=== PATIENT | male | born 1950 | race Caucasian/White ===

== ENCOUNTER 2024-01-19 19:11 | Emergency (ER) | payer MEDICARE, OTHER ==
[~2024-01-19] VITALS: Ht 157.5 cm; Wt 54.4 kg
[~2024-01-19 19:11] MED LIST: INSU100V7 IJ; LISI10TA29 PO; NPH,100V SQ
[2024-01-19 19:14] VITALS: BP_SYST 189; PULSE 100; RESP 28; TEMP 98.3; O2SAT 95
[2024-01-19] MEDS: NITROGLYCERIN 0.4 MG TAB.SUBL SL ONE (19:39)
[2024-01-19 19:46] LABS: BASOPHILS # (AUTO) 0.1 K/uL (0.0-0.2); BASOPHILS % (AUTO) 0.6 % (0.0-2.0); EOSINOPHILS # (AUTO) 0.5 K/uL (0.0-0.4); EOSINOPHILS % (AUTO) 5.4 % (0.0-4.0); HEMATOCRIT 22.8 % (36-54); HEMOGLOBIN 7.9 g/dL (14.0-18.0); LYMPHOCYTES # (AUTO) 1.1 K/uL (1.0-5.5); LYMPHOCYTES % (AUTO) 11.2 % (20.5-51.5); MEAN CORPUSCULAR HEMOGLOBIN 32 pg (27-31); MEAN CORPUSCULAR HGB CONC 35 % (32-36); MEAN CORPUSCULAR VOLUME 93 fL (79.0-98.0); MONOCYTES # (AUTO) 0.6 K/uL (0.0-1.0); MONOCYTES % (AUTO) 6.3 % (1.7-9.3); NEUTROPHILS # (AUTO) 7.2 K/uL (1.8-7.7); NEUTROPHILS % (AUTO) 76.5 % (40.0-70.0); PLATELET COUNT (AUTO) 170 K/uL (130-430); RED BLOOD CELL COUNT(AUTO) 2.46 MIL/uL (4.2-6.2); RED CELL DISTRIBUTION WIDTH 13.7 % (9.0-15.0); WHITE BLOOD COUNT (AUTO) 9.4 K/uL (4.8-10.8)
[2024-01-19] MEDS ORDERED: HEPARIN SODIUM,PORCINE 5,000 UNITS/ML VIAL ONE (19:58)
[2024-01-19] MEDS: HEPARIN IV FLUSH 300 UNITS/3ML SYR INJ ONE (20:00)
[2024-01-19 20:03] VITALS: BP_SYST 181; PULSE 102; RESP 24; TEMP 98.2; O2SAT 95
[2024-01-19 20:08] LABS: PROTHROMBIN TIME 10.6 SECS (9.5-12.5)
[2024-01-19 20:34] LABS: ALANINE AMINOTRANSFERASE 12 U/L (12-78); ALBUMIN 3.2 g/dL (3.4-4.8); ANION GAP 19 (5-15); ASPARTATE AMINOTRANSFERASE 8 U/L (10-37); CALCIUM 8.3 mg/dL (8.4-11.0); CARBON DIOXIDE 19 mmol/L (23-29); CHLORIDE 100 mmol/L (98-107); CREATININE 6.46 mg/dL (0.55-1.30); SODIUM SERUM 138 mmol/L (136-145); TOTAL BILIRUBIN 0.4 mg/dL (0.0-1.0); TOTAL PROTEIN, SERUM 6.7 g/dL (6.4-8.3); UREA NITROGEN, BLOOD 73 mg/dL (8-21)
[2024-01-19 20:35] LABS: GLUCOSE 499 mg/dL (74-106)
== END 2024-01-19 20:03 | disposition short-term general hospital (02) ==
LOC: SED 19:11
DX: R07.9 Chest pain, unspecified (principal); R94.31 Abnormal electrocardiogram [ECG] [EKG]; R06.02 Shortness of breath; R09.02 Hypoxemia; I12.0 Hypertensive chronic kidney disease with stage 5 chronic kidney disease or end stage renal disease; E11.22 Type 2 diabetes mellitus with diabetic chronic kidney disease; N18.6 End stage renal disease; Z79.4 Long term (current) use of insulin; Z88.6 Allergy status to analgesic agent
CPT/HCPCS: 99291; 96374; 80053; 83880; 85025; 85610; 85730; 84484; 36415; 93005; 71045; J1644

== ENCOUNTER 2024-03-15 11:17 | Emergency (ER) | payer MEDICARE ==
[~2024-03-15] VITALS: Ht 157.5 cm; Wt 54.4 kg
[2024-03-15 11:17] VITALS: BP_SYST 116; PULSE 89; RESP 24; TEMP 97; O2SAT 94
[2024-03-15] MEDS: NITROGLYCERIN 0.4 MG TAB.SUBL SL ONE (11:30)
[2024-03-15 11:53] LABS: BASOPHILS # (AUTO) 0.1 K/uL (0.0-0.2); BASOPHILS % (AUTO) 0.7 % (0.0-2.0); EOSINOPHILS # (AUTO) 0.6 K/uL (0.0-0.4); EOSINOPHILS % (AUTO) 6.3 % (0.0-4.0); HEMOGLOBIN 8.6 g/dL (14.0-18.0); LYMPHOCYTES # (AUTO) 1.4 K/uL (1.0-5.5); MEAN CORPUSCULAR HEMOGLOBIN 31 pg (27-31); MEAN CORPUSCULAR HGB CONC 33 % (32-36); MEAN CORPUSCULAR VOLUME 93 fL (79.0-98.0); MONOCYTES # (AUTO) 0.8 K/uL (0.0-1.0); MONOCYTES % (AUTO) 8.5 % (1.7-9.3); NEUTROPHILS # (AUTO) 6.6 K/uL (1.8-7.7); NEUTROPHILS % (AUTO) 69.5 % (40.0-70.0); PLATELET COUNT (AUTO) 217 K/uL (130-430); RED BLOOD CELL COUNT(AUTO) 2.78 MIL/uL (4.2-6.2); RED CELL DISTRIBUTION WIDTH 14.2 % (9.0-15.0); WHITE BLOOD COUNT (AUTO) 9.5 K/uL (4.8-10.8)
[2024-03-15 12:12] LABS: ANION GAP 13 (5-15); CALCIUM 8.5 mg/dL (8.4-11.0); CARBON DIOXIDE 23 mmol/L (23-29); CHLORIDE 94 mmol/L (98-107); CREATINE KINASE, TOTAL 152 U/L (39-308); CREATININE 5.78 mg/dL (0.55-1.30); POTASSIUM 4.2 mmol/L (3.5-5.1); SODIUM SERUM 130 mmol/L (136-145); UREA NITROGEN, BLOOD 69 mg/dL (8-21)
[2024-03-15 12:17] LABS: GLUCOSE 526 mg/dL (74-106)
[2024-03-15 12:19] LABS: PROTHROMBIN TIME 10.8 SECS (9.5-12.5)
[2024-03-15 12:31] VITALS: BP_SYST 163; PULSE 88; RESP 22; TEMP 97.8; O2SAT 96
== END 2024-03-15 12:31 | disposition left against medical advice (07) ==
LOC: SED 11:17
DX: R06.02 Shortness of breath (principal); R00.0 Tachycardia, unspecified; Z88.5 Allergy status to narcotic agent; Z88.6 Allergy status to analgesic agent; Z88.8 Allergy status to other drugs, medicaments and biological substances; Z79.4 Long term (current) use of insulin; Z79.899 Other long term (current) drug therapy
CPT/HCPCS: 36415; 71045; 80048; 82550; 82948; 83605; 83880; 84484; 85025; 85610; 85730; 93005; 99285